=== PATIENT | female | born 2000 | race Caucasian/White ===

== ENCOUNTER 2018-05-21 16:16 | Outpatient (REF) | payer MEDICAID, SELFPAY | END 2018-05-21 16:36 | LOC: NCHCN 16:16 | PROVIDERS: PCP Family Medicine; Visit Provider Nurse Practitioner Family | DX: M54.9 Dorsalgia, unspecified (principal) | CPT/HCPCS: 87077; 87086 ==

== ENCOUNTER 2020-04-11 16:49 | Outpatient (REF) | payer MEDICAID, SELFPAY ==
[2020-04-11 21:12] LABS: HCT 45.7 % (36.0-46.0); HGB 15.9 g/dL (11.2-15.7); MCH 31.3 pg (27.0-33.0); MCHC 34.8 % (32.0-36.0); MPV 13.6 fL (8.0-11.0); Platelet Count 200 10^3/uL (130-400); RBC 5.08 10^6/uL (3.93-5.22); RDW 11.6 % (11.7-14.6); WBC 8.97 10^3/uL (4.4-10.8)
[2020-04-11 22:21] LABS: TSH (W/Ref FT4) 1.13 uIU/mL (0.36-3.74); Vitamin B12 442 pg/mL (193-986)
[2020-04-13 04:53] LABS: Vitamin D 25 Total 19.9 ng/ml (30-100)
== END 2020-04-11 17:09 ==
LOC: NCHCN 16:49
PROVIDERS: PCP Family Medicine; Visit Provider Nurse Practitioner Family
DX: F41.8 Other specified anxiety disorders (principal); R53.83 Other fatigue
CPT/HCPCS: 82306; 85027; 82607; 84443

== ENCOUNTER 2020-08-04 18:37 | Outpatient (REF) | payer MEDICAID, SELFPAY ==
[2020-08-07 05:55] LABS: Vitamin D 25 Total 32.7 ng/ml (30-100)
== END 2020-08-04 18:57 ==
LOC: NCHCN 18:37
PROVIDERS: PCP Family Medicine; Visit Provider Family Medicine
DX: E55.9 Vitamin D deficiency, unspecified (principal)
CPT/HCPCS: 82306

== ENCOUNTER 2020-08-25 11:28 | Outpatient (REF) | payer MEDICAID, SELFPAY ==
--- NOTE | 2020-08-25 08:30 | PAPFT_PTH ---
PATIENT: Rosy Spencer LOC: [facility] U#:[id number] AGE/SX: 19/F ROOM: RE08/25/[address]: Buzz Whelan : 2000 BED: DIS: 08/25/2020 SPEC #: [id number] RECD: 08/25/20 13:02 STATUS: SHANICE REAGAN #: [id number] XIOMARA: 08/25/20 08:[address]: Buzz Whelan [facility] Cytology RECD BY: Chiquita Eubanks Tissues: 1 - CX/ENDOCX FOR PAP SMEARS Procedures: PAP THIN PREP/UVM Screening Comments: [id number]
== END 2020-08-25 11:48 ==
LOC: NCHCN 11:28
PROVIDERS: PCP Family Medicine; Visit Provider Family Medicine
DX: Z12.4 Encounter for screening for malignant neoplasm of cervix (principal)
CPT/HCPCS: 88142

== ENCOUNTER 2020-10-23 16:29 | Outpatient (REF) | payer MEDICAID, SELFPAY ==
[2020-10-25 12:56] LABS: COVID-19 RT-PCR UVMMC Result Negative (Negative)
== END 2020-10-23 16:30 | disposition home or self-care (01) ==
LOC: NCHCN 16:29
PROVIDERS: PCP Family Medicine; Visit Provider Internal Medicine
DX: Z20.822 Contact with and (suspected) exposure to COVID-19 (principal); R05 Cough
CPT/HCPCS: U0003

== ENCOUNTER 2021-07-20 15:02 | Outpatient (REF) | payer MEDICAID, SELFPAY ==
[2021-07-23 14:34] LABS: Chlamydia Result Negative (Negative); GC Result Negative (Negative)
== END 2021-07-20 15:03 | disposition home or self-care (01) ==
LOC: NCHCN 15:02
PROVIDERS: PCP Family Medicine; Visit Provider Family Medicine
DX: Z11.3 Encounter for screening for infections with a predominantly sexual mode of transmission (principal)
CPT/HCPCS: 87491; 87591

== ENCOUNTER 2024-06-15 21:51 | Outpatient (REF) | payer BC, SELFPAY ==
[2024-06-15 21:44] LABS: COVID-19 PCR Negative (Negative); Influenza A PCR Negative (Negative); Influenza B PCR Negative (Negative); RSV PCR Negative (Negative)
[2024-06-15 21:47] LABS: Source Nasopharynx
--- OUTSIDE RECORDS SUMMARY | 2024-06-15 21:53 | XMS_ITS | Encounter Summary ---
Author Organization [facility] Address [address] [place] [address] Care Team Providers Care Insurance Sales Representative Name Role Phone Unavailable Primary Care Provider Unavailabl e Encounter Details Date Type Department Care Team (Late st Contact Info) Description 08/17/2008 17:02 EST Hospital Encounter [facility] - Other [address] [place] [address] Gabe Warner MD [address] [place] [id number] Discharge Disposition: Home or Self Care Social History Tobacco Use Types Packs/Day Years Used Date Smoking Tobacco: Never Assessed Sex and Gender Information Value Date Recorded Sex Assigned at Not on file Gender Identity Female 12/18/2021 18:07 EDT Sexual Orientation Not on file documented as of this encounter Discharge Disposition Disposition Code Departure Means Destination Home or Self Care documented in this encounter Plan of Treatment Not on file documented as of this encounter Procedures Procedure Name Priority Date/Time Associated Diagnosis Comments SURGICAL PATHOLOGY Routine 08/17/2008 0:00 EST documented in this encounter Results * SURGICAL PATHOLOGY (08/17/2008 0:00 EST) Pathology Report: SURGICAL PATHOLOGY REPORT ? Reports generated via electronic interface contain original data; ? however they are lacking the format of the original report. ? Caution should be taken when reading/interpreti ng unformatted reports. ? Name: ? ARLYN, ROSY R ? Accession #: ? [id number] ? : ? 2000 (Age: 7) ??F ? Collect Date: ? 08/17/2008 ? Location: ? [facility] ? Receive Date: ? 08/17/2008 ? Provider: GABE WARNER MD ? Copy to: PETER THURMAN MD ? Final Pathologic Diagnosis: ? Skin of back, right, punch biopsy [id number] ? 1. ?Melanocytic nevus, compound type, with unusual architectural ? features and moderate-severe cytologic atypia. ??See comment. ? - Nevus extends to peripheral edge of punch biopsy specimen. ? Comment: ? The biopsy consists of a compound melanocytic proliferation that shows ? significant architectural and cytologic atypia of the junctional component. ? Although a Spitz nevus is a consideration given the patient's age, the ? morphologic features are not characteristic of a Spitz nevus. ??The growth ? pattern of the dermal component also raises the possibility of a congenital ? nevus. ??However, the features noted in the junctional component are unusual for a congenital nevus. 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 ??Given the degree of atypia and focal extension ?? of the lesion to the edges of the biopsy, conservative re-excision is ? recommended. ??(Dr. Wyman)/[facility] ? Microscopic Description: ? Sections consist of a punch biopsy of skin to the deep reticular dermis. ?? The epidermis shows a variable degree of fibroplasia with elongate and somewhat anastomosing rete ridges. ??There is a proliferation of melanocytes that spans ?? much of the biopsy specimen. ??The intraepidermal component predominates and ? extends beyond the dermal component. ??The intraepidermal melanocytes are ? arranged in nests and as individual cells. ??The nests vary in size and shape and many are ill-defined. ??In areas, individual melanocytes predominate and are ? focally crowded along the dermal-epidermal junction. ??Individual melanocytes are identified in the lower portions of the epidermis but well-developed upward ? migration (into the upper levels of the epidermis) is not identified. ??The ? intraepidermal melanocytes are enlarged and most have an abundance of ? ill-defined cytoplasm containing coarse melanin pigment. ??The nuclei show a ? moderate degree of pleomorphism and many have vesicular chromatin and small ? discernible nucleoli. ??Occasional large, hyperchromatic forms are evident. ??The dermal component consists of smaller melanocytes forming nests and cords. ??In ?? general, the dermal melanocytes show features of maturation with descent. ? Mitotic figures are not identified within the dermal melanocytes. ??The ? melanocytes, in some areas, extend preferentially around the neurovascular ? plexus and adnexal structures. ??There is a mild degree of papillary dermal ? fibroplasia with a sparse lymphocytic infiltrate and clusters of melanophages. ?? Numerous deeper sections show similar features. ??(Dr. Wyman)/[facility] ? Document reviewed and electronically signed by: ? Yesenia Wyman MD ? Report ??Date: 08/17/2008 16:30 ? By the signature above, the attending physician certifies that he/she has ? personally conducted a gross and/or microscopic examination of the described ? specimens and rendered or confirmed the above diagnosis. ? Specimen(s) Received: ? [facility] [id number] (9) ? Clinical History: ? Skin lesion ? Gross Description: ? Nine slides are received for review from [facility], one each labelled [id number], ? [id number] dpr 1-3, [id number] dpr 4-6, [id number] dpr 7-9, [id number] dpr ?? 10-12, [id number] dpr 13-15, [id number] dpr 16-18, two labelled [id number] ?? early ribbon. ? End of Report ? [facility] 08/17/2008 08/17/2008 12: 02 EST Gabe Warner MD PATHOLOGY ORDERABLES [facility] [address] [place] [address] documented in this encounter Visit Diagnoses Not on filedocumented in this encounter
--- OUTSIDE RECORDS SUMMARY | 2024-06-15 21:53 | XMS_ITS | Encounter Summary ---
Author Organization [facility] Address [address] [place] [address] Care Team Providers Care Belt Back Operator Name Role Phone Cony Perez MD Primary Care Provider [phone] Jodi Whelan MD Primary Care Provide r Reason for Referral * Radiology Services (Routine/Next Available) - Authorization Not Required Specialty Diagnoses / Procedures [facility] Referred To Contact Radiology Diagnoses Monocular vision loss Procedures MR HEAD W WO CONTRAST Lala Rutherford MD [address] [place] [phone] [facility] Referral ID Status Reason Start Date Expiration Date Visits Requested Visits Authorized [id number] Authorization Not Required 11/26/2021 1 1 Reason for Visit * Reason Comments Eye Flashes And/Or Floaters Encounter Details Date Type Department Care Team (Late st Contact Info) Description 11/26/2021 13:45 EDT Office Visit [facility] Ophthalmology - [address] [address] Lala Rutherford MD [address] [place] [phone] Social History Tobacco Use Types Packs/Day Years Used Date Smoking Tobacco: Former Cigarettes 1 09/13/2018 - 09/19/2020 Smokeless Tobacco: Never Comments:Pt vapes jessica xiao Alcohol Use Standard Drinks/Week Comments Not Currently 0 (1 standard drink = 0.6 oz pur e alcohol) Sex and Gender Information Value Date Recorded Sex Assigned at Not on file Gender Identity Female 12/18/2021 18:07 EDT Sexual Orientation Not on file documented as of this encounter Progress Notes * Lala Rutherford MD - 11/26/2021 4075 EDT Chief Complaint Patient presents with ??? Eye Flashes And/Or Floaters Comments On Friday a dark blob appeared in vision of left eye, looked away, then started seeing wavy blurriness in far periphery of left visual, which grew until VA of left eye was lost for ~2 minutes, and then returned. During entire episode, which lasted ~2.5 hours, pt had sharp pains in right side of head. Once the sharp pains resolved, pt states she had a migraine. Pt had a bad migraine 2 weeks ago, without any visual symptoms. Pt states that when driving her eyes get very irritated, and she needs to push on them to relieve the irritation. Pt states it may be photophobia, but is unable to describeit further. Pt denies eye pain. Pt felt disoriented at end of episode. Pt had a similar episode about 3 mos ago, although she was in a brighter room, and the visual aberration was super bright. That entire episode lasted only about 10 minutes. More recently eyes have been irritated like what happens when she is driving, even when she is not driving. Pt has HEWITT approximately HEWITT about 3x weekly, are relieved by taking Tylenol. Pt c/o new floaters over past two weeks or so. Rare floater. Pt wears glasses, current Rx 1 year old. Maternal grandfather, and Maternal great grandmother both had retinitis pigmentosa. HPI The patient is a 21 y.o. female who is here for visual symptoms in the setting of headaches. POH: Patient had headaches and was given glasses for reading at age 5 to address this. As patient has gotten older, she developed migraines that include being in a lot of pain, goes to lie down in a dark room and cannot move, and puts her hand on her left brow. Patient has been on oral contraceptive for many years. The brand was changed about two months ago. She was started on prazosin and buspirone one month ago. Three months ago she was looking a computer at work and it seemed super-light for about ten minutesand had an associated headache. November 23, she was watching the news in a dark room and the TV looked very bright and then she had a darkened afterimage and she closed her eyes.She next opened her eyes and saw a half brown to her superior left VF with some waving and noted missing seeing about half of her boyfriends face. This progressed to a complete blacking out of vision of the left eye for 2-5 minutes (she states that she covered her left eye and the vision was normal in the right eye). This was followed by a sharp pain inher head and migraine headache. Right Eye: Floaters, Glare or Light Sensitivity (irritation) Left Eye: Floaters, Glare or Light Sensitivity (irritation) Visual Aid: Glasses Current Rx Age 1 year Location: Both eyes Pain: 0 - No pain Quality: Severity: Duration: Months Timing: Constant Lasts: Months Context: Modifying factors: Associated Signs & Symptoms: Attestation: ROS Constitutional: ENT/Mouth NL Cardiovascular: NL Respiratory: NL Gastrointestinal: Genitourinary: Musculoskeletal: Integumentary: Neurologic: Headache Psychiatric: Uncontrolled Anxiety, Depression (Under treatment) Endocrine: NL Hematologic: Immunologic: Chemical Supervisor: Exposures: Other: Attestation: Allergies include: Patient has no known allergies. There is no problem list on file for this patient. Outpatient Medications Marked as Taking for the 11/26/21 encounter (Office Visit) with Lala Rutherford MD Medication Sig ??? acetaminophen (TYLENOL) 500 mg tablet Take 500 mg by mouth every 6 hours as needed for Pain. ??? buspirone HCl (BUSPIRONE ORAL) Take by mouth. ??? ergocalciferol, vitamin D2, (VITAMIN D ORAL) Take by mouth. ??? prazosin HCl (PRAZOSIN ORAL) Take by mouth daily. ??? UNKNOWN TO PATIENT Some form of control History reviewed. No pertinent past medical history. History reviewed. No pertinent surgical history. Family History Problem Relation Age of Onset ??? Retinitis Pigmentosa Maternal Grandmother ??? Macular Degeneration Maternal Grandfather ??? Retinitis Pigmentosa Maternal Great-Grandmother ??? Glaucoma Neg Hx Patient reports that she quit smoking about 15 months ago. She started smoking about 2 years ago. She has never used smokeless tobacco. She reports previous alcohol use. She reports previous drug use. Recent HbA1c: No results found for: HGBA1C Base Eye Exam Visual Acuity (Snellen - Linear) Right Left Dist cc 20/20 -1 20/20 Near cc J1+ J1+ Correction: Glasses Tonometry (iCare, 14:17) Right Left Pressure 18 18 Pupils Dark Light Shape React APD Right 6.5 4 Round Brisk None Left 6.5 4 Round Brisk None Visual Hernández (Counting fingers) Right Left Full Full Extraocular Movement Right Left Full, Ortho Full, Ortho Neuro/Psych Oriented x3: Yes Mood/Affect: Normal Dilation Both eyes: Paremyd @ 14:38 Additional Tests Color Right Left Ishihara Slit Lamp and Fundus Exam External Exam Right Left External Normal Normal Slit Lamp Exam Right Left Lids/Lashes Normal Normal Conjunctiva/Sclera White and quiet White and quiet Cornea Clear Clear Anterior Chamber Deep and quiet Deep and quiet Iris Dilated, blue Dilated, blue Lens Clear Clear Vitreous Normal Normal Fundus Exam Right Left Disc Superior peripapillary pigment Healthy Rim C/D Ratio 0.6 0.7 Macula Normal Normal Vessels Normal Normal Periphery Normal Normal Refraction Wearing Rx Sphere Cylinder [place] Right -0.75 +0.75 086 Left -0.50 +0.75 094 Age: 1yr Type: SVL DIAGNOSTIC TESTS: OCT, Optic Nerve - OU - Both Eyes OCT REPORT Indications: Monocular Vision Loss Findings: Right Eye: Left Eye: RNFL: 106 105 Optic Nerve Head: 0.67 0.63 Signal Strength 10/10 10/10 Original test to be found in patients shadow chart Toth VF 24-2 Fast - OU - Both Eyes Right Eye 24-2. Left Eye 24-2. Notes VISUAL FIELD TEST Report Test: 24-2 KELVIN Standard Indications: Monocular Vision Loss Findings: Right Eye: Left Eye: False positives 5%, false negatives 7%. Nonspecific defects Reliable and nonspecific defects Original tests to be found in patients shadow chart Impact on Plan: Will follow MR HEAD W WO CONTRAST EXAM: MRI HEAD WO/W CONTRAST HISTORY: Vision loss, monocular; Headache, classic migraine. TECHNIQUE: MRI head without and with intravenous gadolinium contrast. Structured report code: NR.04 COMPARISON: None. FINDINGS: PARENCHYMA: No evidence of infarction. No parenchymal hemorrhage. No mass or midline shift. No abnormal enhancement. EXTRA-AXIAL SPACES: No extra-axial collection. No extra-axial mass. VENTRICLES: No hydrocephalus. VESSELS: The flow voids and intravascular enhancement are normal. No dural venous sinus thrombosis or stenosis. BONES: Unremarkable. ORBITS: No significant abnormality. No scleral flattening or increased CSF in the optic nerve sheaths. PARANASAL SINUSES/MASTOID AIR CELLS: Predominantly clear. EXTRACRANIAL SOFT TISSUES: Unremarkable. IMPRESSION Normal MRI of the head without and with contrast. IMPRESSION & PLAN: Rosy is here for visual symptoms in the setting of headaches. She is accompanied by her mother. POH: Patient had headaches and was given glasses for reading at age 5 to address this. As patient has gotten older, she developed migraines that include being in a lot of pain, goes to lie down in a dark room and cannot move, and puts her hand on her left brow. Patient has been on oral contraceptive for many years. The brand was changed about two months ago. She was started on prazosin and buspirone one month ago. Three months ago she was looking a computer at work and it seemed super-light for about ten minutesand had an associated headache. November 23, she was watching the news in a dark room and the TV looked very bright and then she had a darkened afterimage and she closed her eyes.She next opened her eyes and saw a half brown to her superior left VF with some waving and noted missing seeing about half of her boyfriends face. This progressed to a complete blacking out of vision of the left eye for 2-5 minutes (she states that she covered her left eye and the vision was normal in the right eye). This was followed by a sharp pain inher head and migraine headache. Today's exam of the visual system appears normal. She has mild physiologic cupping and a little astigmatism. Given the MONOCULAR Visual loss, this is likely a RETINAL MIGRAINE. I discussed this with Dr. Holm. PLAN: Discussed with patient that the oral contraceptive is contraindicated in those with migraine with aura, and she should take this up with her prescribing doctor. Ordered MRI with contrast of her brain, for baseline reassurance most likely. rv after the MRI. [facility] MRI report reviewed and nothing ominous revealed. Thus, retinal migraine. Arrange fu- copy to Renee Gallegos was seen today for eye flashes and/or floaters. Diagnoses and all orders for this visit: Monocular vision loss - OCT, OPTIC NERVE - OU - BOTH EYES - TOTH VF 24-2 FAST - OU - BOTH EYES - MR HEAD W WO CONTRAST Migraine with aura and without status migrainosus, not intractable - OCT, OPTIC NERVE - OU - BOTH EYES - TOHT VF 24-2 FAST - OU - BOTH EYES Retinal migraine - OCT, OPTIC NERVE - OU - BOTH EYES Other orders - acetaminophen (TYLENOL) 500 mg tablet; Take 500 mg by mouth every 6 hours as needed for Pain. - prazosin HCl (PRAZOSIN ORAL); Take by mouth daily. - buspirone HCl (BUSPIRONE ORAL); Take by mouth. - ergocalciferol, vitamin D2, (VITAMIN D ORAL); Take by mouth. - UNKNOWN TO PATIENT; Some form of control I have reviewed the patient's past medical, family, social and surgical history. I have also reviewed the patient's medications, allergies, and problem list. I performed my own HPI and have reviewed the tech's ROS as well. I personally completed this exam myself. Lala Rutherford MD I am scribing for Dr. Lala Rutherford while she is personally performing the service. Signature: SAMANTA Verma The patient was instructed to call our office or go to emergency room if worse vision, worse symptoms, or new/other concerns arise. documented in this encounter Plan of Treatment Not on file documented as of this encounter Procedures Procedure Name Priority Date/Time Associated Diagnosis Comments MR HEAD W WO CONTRAST Routine 12/18/2021 19:45 EDT Monocular vision loss OCT, OPTIC NERVE - OU - BOTH EYES Routine 11/26/2021 16:09 EDT Monocular vision loss Migraine with aura and without status migrainosus, not intractable Retinal migraine TOTH VF 24-2 FAST - OU - BOTH EYES Routine 11/26/2021 16:09 EDT Monocular vision loss Migraine with aura and without status migrainosus, not intractable documented in this encounter Results * MR HEAD W WO CONTRAST (12/18/2021 19:45 EDT) Anatomical Region Laterality Modality Head Magnetic Resonan ce 12/19/2021 10:0 3 EDT Impressions 12/19/2021 10:03 EDT Normal MRI of the head without and with contrast. Narrative 12/19/2021 10:03 EDT EXAM: MRI HEAD WO/W CONTRAST HISTORY: Vision loss, monocular; Headache, classic migraine. TECHNIQUE: MRI head without and with intravenous gadolinium contrast. Structured report code: NR.MR04 COMPARISON: None. FINDINGS: PARENCHYMA: No evidence of infarction. No parenchymal hemorrhage. No mass or midline shift. No abnormal enhancement. EXTRA-AXIAL SPACES: No extra-axial collection. No extra-axial mass. VENTRICLES: No hydrocephalus. VESSELS: The flow voids and intravascular enhancement are normal. No dural venous sinus thrombosis or stenosis. BONES: Unremarkable. ORBITS: No significant abnormality. No scleral flattening or increased CSF in the optic nerve sheaths. PARANASAL SINUSES/MASTOID AIR CELLS: Predominantly clear. EXTRACRANIAL SOFT TISSUES: Unremarkable. Procedure Note Corby Palmer MD - 12/19/2021 EXAM: MRI HEAD WO/W CONTRAST HISTORY: Vision loss, monocular; Headache, classic migraine. TECHNIQUE: MRI head without and with intravenous gadolinium contrast.Structured report code: NR.MR04 COMPARISON: None. FINDINGS: PARENCHYMA: No evidence of infarction. No parenchymal hemorrhage. No mass or midlineshift. No abnormal enhancement. EXTRA-AXIAL SPACES: No extra-axial collection. No extra-axial mass. VENTRICLES: No hydrocephalus. VESSELS: The flow voids and intravascular enhancement are normal. No dural venoussinus thrombosis or stenosis. BONES: Unremarkable. ORBITS: No significant abnormality. No scleral flattening or increased CSF in theoptic nerve sheaths. PARANASAL SINUSES/MASTOID AIR CELLS: Predominantly clear. EXTRACRANIAL SOFT TISSUES: Unremarkable. IMPRESSION Normal MRI of the head without and with contrast. Lala Rutherford MD IMG MRI ORDERABL ES * OCT, OPTIC NERVE - OU - BOTH EYES (11/26/2021 16:09 EDT) Narrative [facility] POINT OF CARE - 11/26/2021 16:09 EDT OCT REPORT Indications: ??Monocular Vision Loss Findings: Right Eye: Left Eye: RNFL: ??106 ??105 Optic Nerve Head: 0.67 0.63 Signal ??Strength 05/27 05/27 Original test to be found in patients shadow chart Lala Rutherford MD OPH TOMOGRAPHY Performing Organization Address [facility] Co de Phone Number [facility] POINT OF CARE * TOTH VF 24-2 FAST - OU - BOTH EYES (11/26/2021 16:09 EDT) Narrative [facility] OF CARE - 11/26/2021 16:09 EDT Right Eye 24-2. Left Eye 24-2. Notes VISUAL FIELD TEST Report Test: 24-2 KELVIN Standard Indications: Monocular Vision Loss Findings: Right Eye: Left Eye: False positives 5%, false negatives 7%. Nonspecific defects Reliable and nonspecific defects ?? Original tests to be found in patients shadow chart Impact on Plan: Will follow Lala Rutherford MD OPH VISUAL FIE LD Performing Organization Address [facility] Co de Phone Number [facility] documented in this encounter Visit Diagnoses Diagnosis Monocular vision loss- Primary Migraine with aura and without status migrainosus, not intractable Migraine with aura, without mention of intractable migraine without mention of status migrainosus Retinal migraine Migraine with aura, without mention of intractable migraine without mention of status migrainosus documented in this encounter Historical Medications * This list may reflect changes made after this encounter. Medication Sig Dispensed Refills Start Date End Date UNKNOWN TO PATIENT Some form of control ergocalciferol, vitamin D2, (VITAMIN D ORAL) Take by mouth. buspirone HCl (BUSPIRONE ORAL) Take by mouth. prazosin HCl (PRAZOSIN ORAL) Take by mouth daily. acetaminophen (TYLENOL) 500 mg tablet Take 500 mg by mouth every 6 hours as needed for Pain. added in this encounter Eye Exam Visual Acuity (Snellen - Linear) Right eye Left eye Dist cc 20/20 -1 20/20 Near cc J1+ J1+ Correction: Glasses Tonometry (iCare, 14:17) Right eye Left eye Pressure 18 18 Pupils Dark Light Shape React APD Right eye 6.5 4 Round Brisk None Left eye 6.5 4 Round Brisk None Visual Hernández (Counting fingers) Right eye Left eye Full Full Extraocular Movement Right eye Left eye Full, Ortho Full, Ortho Neuro/Psych Oriented x3: Yes Mood/Affect: Normal Dilation Both eyes: Paremyd @ 14:38 Color Right eye Left eye Ishihara External Exam Right eye Left eye External Normal Normal Slit Lamp Exam Right eye Left eye Lids/Lashes Normal Normal Conjunctiva/Sclera White and quiet White and trevor et Cornea Clear Clear Anterior Chamber Deep and quiet Deep and quiet Iris Dilated, blue Dilated, blue Lens Clear Clear Vitreous Normal Normal Fundus Exam Right eye Left eye Disc Superior peripapillary pigment H ealthy Rim C/D Ratio 0.6 0.7 Macula Normal Normal Vessels Normal Normal Periphery Normal Normal Wearing Rx Sphere Cylinder [place] Right eye -0.75 +0.75 086 Left eye -0.50 +0.75 094 Age: 1yr Type: SVL Care Teams Belt Back Operator Relationship Specialty Start Date End Date Cony Perez MD PCP - General 06/29/15 12/17/21 Jodi Whelan MD [address] [place] [phone] PCP - General 12/18/21 documented as of this encounter
--- OUTSIDE RECORDS SUMMARY | 2024-06-15 21:53 | XMS_ITS | Encounter Summary ---
Author Organization [facility] Address [address] [place] [address] Care Team Providers Care Broaching Machine Repairer Name Role Phone Cony Perez MD Primary Care Provider [phone] Encounter Details Date Type Department Care Team (Late st Contact Info) Description 11/27/[address] [facility] Radiology - [address] [address] Carlos Vieyra MD [address] [facility], Level 1 [place] [phone] Social History Tobacco Use Types Packs/Day Years Used Date Smoking Tobacco: Former Cigarettes 1 09/13/2018 - 09/19/2020 Smokeless Tobacco: Never Comments:Pt vapes nicotone d aily Alcohol Use Standard Drinks/Week Comments Not Currently 0 (1 standard drink = 0.6 oz pur e alcohol) Sex and Gender Information Value Date Recorded Sex Assigned at Not on file Gender Identity Female 12/18/2021 18:07 EDT Sexual Orientation Not on file documented as of this encounter Plan of Treatment Not on file documented as of this encounter Visit Diagnoses Not on filedocumented in this encounter Care Teams Broaching Machine Repairer Relationship Specialty Start Date End Date Cony Perez MD PCP - General 06/29/15 12/17/21 documented as of this encounter
--- OUTSIDE RECORDS SUMMARY | 2024-06-15 21:53 | XMS_ITS | Clinical Summary ---
Author Organization [facility] Address [address] [place] [address] Care Team Providers Care Sustainability Officer Name Role Phone Jodi Whelan MD Primary Care Provide r Allergies No known active allergies Medications Medication Sig Dispensed Refills Start Date End Date Status acetaminophen (TYLENOL) 500 mg tablet Take 500 mg by mouth every 6 hours as needed for Pain. Active prazosin HCl (PRAZOSIN ORAL) Take by mouth daily. Active buspirone HCl (BUSPIRONE ORAL) Take by mouth. Acti ve ergocalciferol, vitamin D2, (VITAMIN D ORAL) Take by mouth. Active UNKNOWN TO PATIENT Some form of control Active Active Problems No known active problems Family History Medical History Relation Comments Macular Degeneration Maternal Grandfather Retinitis Pigmentosa Maternal Grandmother Retinitis Pigmentosa Maternal Great-Grandmother Glaucoma Neg Hx Relation Status Comments Maternal Grandfather Maternal Grandmother Maternal Great-Grandmother Social History Tobacco Use Types Packs/Day Years Used Date Smoking Tobacco: Every Day Cigarettes Started: 07/14/2019; Last attempted to quit: 09/19/2020 Smokeless Tobacco: Never Comments:Pt vapes nicotone d aily Alcohol Use Standard Drinks/Week Comments Yes 0 (1 standard drink = 0.6 oz pur e alcohol) Sex and Gender Information Value Date Recorded Sex Assigned at Not on file Gender Identity Female 12/18/2021 18:07 EDT Sexual Orientation Not on file Obstetrics History Last Filed Vital Signs Vital Sign Reading Time Taken Comments Blood Pressure 119/76 12/30/2021 1330 EDT Pulse 101 12/30/2021 1255 EDT Temperature 36.8 ??C (98.2 ??F) 12/30/2021 1255 EDT Respiratory Rate 18 12/30/2021 1255 EDT Oxygen Saturation 98% 12/30/2021 1330 EDT Inhaled Oxygen Concentration - - Weight 63.5 kg (140 lb) 12/30/2021 1254 EDT Height 157.5 cm (5' 2) 12/30/2021 1254 EDT Body Mass Index 25.61 12/30/2021 1254 EDT Plan of Treatment Health Maintenance Due Date Last Done Comments Hepatitis C Screen 1998 Hepatitis B Vaccine (1 of 3 - 19+ 3-dose series) 11/12 COVID-19 Vaccine (2022-24 season) 2023 Care Teams Sustainability Officer Relationship Specialty Start Date End Date Jodi Whelan MD [address] [address] PCP - General 12/18/21
--- OUTSIDE RECORDS SUMMARY | 2024-06-15 21:53 | XMS_ITS | Encounter Summary ---
Author Organization [facility] Address [address] [place] [address] Care Team Providers Care Certified Prosthetist Name Role Phone Cony Perez MD Primary Care Provider [phone] Jodi Whelan MD Primary Care Provide r Encounter Details Date Type Department Care Team (Late st Contact Info) Description 07/21/2021 Lab Requisition [facility] Pathology & Laboratory Medicine - [address] [address] Outr Resulting Lab, Provider Social History Tobacco Use Types Packs/Day Years Used Date Smoking Tobacco: Never Assessed Sex and Gender Information Value Date Recorded Sex Assigned at Not on file Gender Identity Female 12/18/2021 18:07 EDT Sexual Orientation Not on file documented as of this encounter Plan of Treatment Not on file documented as of this encounter Procedures Procedure Name Priority Date/Time Associated Diagnosis Comments CHLAMYDIA/N. GONORRHOEAE AMPLIFIED NUCLEIC ACID Routine 07/20/2021 14:00 EST documented in this encounter Results * CHLAMYDIA/N. GONORRHOEAE AMPLIFIED RNA (07/20/2021 14:00 EST) Neisseria gonorrhoeae Result Negative Negative 07/23/2021 14:29 EST [facility] Chlamydia trachomatis Result Negative Negative 07/23/2021 14:29 EST [facility] Swab ENTIRE VAGINA / Unknown 07/20/2021 14:00 EST 07/22/2021 8:26 EST Provider Outr Resulting Lab MICROBIOLOGY - GENERAL ORDERABLES [facility] [address] [place] [address] documented in this encounter Visit Diagnoses Not on filedocumented in this encounter Care Teams Certified Prosthetist Relationship Specialty Start Date End Date Cony Perez MD PCP - General 06/29/15 12/17/21 Jodi Whelan MD [address] [place] [address] PCP - General 12/18/21 documented as of this encounter
--- OUTSIDE RECORDS SUMMARY | 2024-06-15 21:53 | XMS_ITS | Encounter Summary ---
Author Organization [facility] Address [address] [place] [address] Care Team Providers Care Hydro Pneumatic Tester Name Role Phone Unavailable Primary Care Provider Unavailabl e Encounter Details Date Type Department Care Team (Late st Contact Info) Description 10/22/2004 Results Only [facility] [address] [place] [address] Unknown, Provider, Social History Tobacco Use Types Packs/Day Years Used Date Smoking Tobacco: Never Assessed Sex and Gender Information Value Date Recorded Sex Assigned at Not on file Gender Identity Female 12/18/2021 18:07 EDT Sexual Orientation Not on file documented as of this encounter Plan of Treatment Not on file documented as of this encounter Procedures Procedure Name Priority Date/Time Associated Diagnosis Comments N. GONORRHOEAE AMPLIFIED PROBE Routine 10/22/2004 13:41 EST ZZCHLAMYDIA TRACHOMATIS AMPLIFIED PROBE Routine 10/22/2004 13:41 EST documented in this encounter Results * N. GONORRHOEAE AMPLIFIED PROBE (10/22/2004 13:41 EST) Result No Neisseria gonorrhoeae DNA detected by tax clerk mediated amplification. If sexual abuse is suspected, culture is recommended. [facility] Report Status Final [id number] [facility] Specimen Description Urine [facility] 10/22/2004 13:4 1 EST 10/22/2004 22:30 EST Provider Unknown MICROBIOLOGY - GENER AL ORDERABLES Performing Organization Address [facility] Co de Phone Number [facility] [address] [place] [address] * CHLAMYDIA TRACHOMATIS AMPLIFIED PROBE (10/22/2004 13:41 EST) Specimen Description Urine [facility] Result No Chlamydia trachomatis DNA detected by tax clerk mediated amplification. If sexual abuse is suspected, culture is recommended. [facility] Report Status Final [id number] [facility] 10/22/2004 13:4 1 EST 10/22/2004 22:30 EST Provider Unknown MICROBIOLOGY - GENER AL ORDERABLES Performing Organization Address [facility] de Phone Number [facility] [address] [place] [address] documented in this encounter Visit Diagnoses Not on filedocumented in this encounter
--- OUTSIDE RECORDS SUMMARY | 2024-06-15 21:53 | XMS_ITS | Encounter Summary ---
Author Organization [facility] Address [address] [place] [address] Care Team Providers Care Willow Machine Tender Name Role Phone Jodi Whelan MD Primary Care Provide r Reason for Visit * Radiology Services (Routine/Next Available) - Authorization Not Required Specialty Diagnoses / Procedures Referred By Contac t Referred To Contact Radiology Diagnoses Monocular vision loss Procedures MR HEAD W WO CONTRAST Lala Rutherford MD [address] [facility] [address] [place] [address] [facility] Referral ID Status Reason Start Date Expiration Date Visits Requested Visits Authorized [id number] Authorization Not Required 11/26/2021 1 1 Encounter Details Date Type Department Care Team (Latest Contact Info) Description 12/18/2021 18:08 EDT - 12/18/2021 23:59 EDT Hospital Encounter [facility] Radiology [facility] [place] [id number] Discharge Disposition: Home or Self Care Social [...] on file documented as of this encounter Medications at Time of Discharge Medication Sig Dispensed Refills Start Date End Date acetaminophen (TYLENOL) 500 mg tablet Take 500 mg by mouth every 6 hours as needed for Pain. buspirone HCl (BUSPIRONE ORAL) Take by mouth. ergocalciferol, vitamin D2, (VITAMIN D ORAL) Take by mouth. prazosin HCl (PRAZOSIN ORAL) Take by mouth daily. UNKNOWN TO PATIENT Some form of control documented as of this encounter Discharge Disposition Disposition Code Departure Means Destination Home or Self Residential documented in this encounter Plan of Treatment Not on file documented as of this encounter Procedures Procedure Name Priority Date/Time Associated Diagnosis Comments MR HEAD W WO CONTRAST Routine 12/18/2021 19:45 EDT Monocular vision loss documented in this encounter Visit Diagnoses Not on filedocumented in this encounter Administered Medications Inactive Administered Medications - up to 3 most recent administrations Medication Order MAR Action Action Date Dose Rate Site gadoterate meglumine solution 1-30 mL 1-30 mL, intravenous, Once in imaging, 1 dose, Starting on Fri12/18/21 at 1935, Until Fri12/18/21 at 1935, Routine, Imaging Protocol Orders Given 12/18/2021 19:35 EDT 12 mL documented in this encounter Orders Medications Ordered That Vinny ht Not Have Been Administered Count Last Ordered Date First Ordered Date gadoterate meglumine solution 1-30 mL 1 10/2021 documented in this encounter Care Teams Willow Machine Tender Relationship Specialty Start Date End Date Jodi Whelan MD [address] [place] [address] [address] [place] [address] PCP - General 12/18/21 documented as of this encounter
--- OUTSIDE RECORDS SUMMARY | 2024-06-15 21:53 | XMS_ITS ---
Author Organization Unknown Address [address] [place] [phone] Phone Care Team Providers Care Environmental Change Analyst Name Role Phone LOUIE Judd Attending Unavailable NICOLE Puente Primary Unavailable Results [facility] - Corin ect Date/Time: 08/08/2021 09:47 [facility] ID: [id number] [address] [place], [place], [id number] LOINC: 64916-1 Test Value Unit Reference Range Code Code System Flag SOURCE= Anterior nasal Tier- EXPOSURE SARS COV2 RNA: NEGATIVE REFERENCE RAN GE: NEGAT 35484-4 LOINC Social History Type Status Start Date End Date Code Code Syst em Smoking History Never smoker (Never Smoked) 572375002 SNOMED CT Sex Female Medications Medication Start Date End Date Route Frequency Dose Code Code System Medication Instructions Home Meds Bactrim DS 800MG-160MG Oral Tablet 07/05/2023 10/16/2023 ORAL TWICE A DAY 1 TABLET 041575 RxNorm TAKE 1 TABLET ORAL TWICE A DAY diazePAM 2MG Oral Tablet 10/16/2023 Unknown ORAL EVERY 6 HOURS 1 TABLET 582879 RxNorm TAKE 1 TABLET ORAL EVERY 6 HOURS as needed spasm Hospital Discharge Instructions Should you have any questions prior to discharge, please contact a member of your healthcare team. If you have left the hospital and have any questions, please contact your primary care physician. Reason For Referral No Data Found Problems Problem Start Date Resolved Date Status Code Code System ANXIETY 01/20/2022 resolved [id number] SNOMED-CT DEPRESSION 01/20/2022 resolved 89840606 SNOMED-C T Allergies and Adverse Reactions Allergy Substance Reaction Severity Start Date Concern Status Co de Code System No Known Allergies Moderate Active 402587760 SN OMED-CT Plan of Treatment Symptoms 05/17/2020 US ABDOMEN LIMITED 1 ORGAN 09/03/2023 EXPOSURE 08/08/2021 SYMPTOMS 06/15/2021 Encounters Encounter Diagnosis Start Date Code Code Sys tem Exposure to SARS-CoV-2 08/08/2021 [id number] WICHO D-CT Personal Care Team Section Performer Name Performer Role Active Date Inactive Da te
--- OUTSIDE RECORDS SUMMARY | 2024-06-15 21:53 | XMS_ITS | Encounter Summary ---
Author Organization [facility] Address [address] [place] [address] Care Team Providers Care Diving Coach Name Role Phone Unavailable Primary Care Provider Unavailabl e Encounter Details Date Type Department Care Team (Latest Contact Info) Description 08/27/2002 8:20 EST - 08/27/2002 11:59 EST Hospital Encounter [address] [address] Elan Dominguez, DDS [address] [place] [address] Discharge Disposition: Auto Discharge Social History Tobacco Use Types Packs/Day Years Used Date Smoking Tobacco: Never Assessed Sex and Gender Information Value Date Recorded Sex Assigned at Not on file Gender Identity Female 12/18/2021 18:07 EDT Sexual Orientation Not on file documented as of this encounter Discharge Disposition Disposition Code Departure Means Destination Auto Discharge documented in this encounter Plan of Treatment Not on file documented as of this encounter Visit Diagnoses Not on filedocumented in this encounter
--- OUTSIDE RECORDS SUMMARY | 2024-06-15 21:53 | XMS_ITS | Encounter Summary ---
Author Organization [facility] Address [address] [place] [address] Care Team Providers Care Welder Machine Operator Name Role Phone Cony Perez MD Primary Care Provider [phone] Jodi Whelan MD Primary Care Provide r Encounter Details Date Type Department Care Team (Late st Contact Info) Description 10/24/2020 Lab Requisition [facility] Pathology & Laboratory Medicine - [facility] [address] [place] [address] Outr Resulting Lab, Provider Social History Tobacco [...] Procedure Name Priority Date/Time Associated Diagnosis Comments ZZCOVID-19 TEST [facility] LAB PCR Today 10/23/2020 16:00 EST COVID-19 TESTING Routine 10/23/2020 16:0 0 EST documented in this encounter Results * COVID-19 TEST [facility] PCR (10/23/2020 16:00 EST) Swab ENTIRE NASOPHARYNX / Unknown 10/23/2020 16:00 EST 10/24/2020 16:07 EST Provider Outr Resulting Lab MICROBIOLOGY - GENERAL ORDERABLES [facility] [address] [place] [address] * COVID-19 TESTING (10/23/2020 16:00 EST) COVID-19 rt-PCR Result Negative Negative 10/25/2020 12:51 EST [facility] Comment: This test has not been FDA cleared or approved. This test has been authorized by FDA under an EUA for use by authorized laboratories. This test has been authorized only for detection of nucleic acid from 2019-nCoV, not for any other viruses or pathogens. This test is only authorized for the duration of the declaration that circumstances exist justifying the authorization of emergency use of in vitro diagnostic tests for detection and/or diagnosis of 2019-nCoV under section 564(b)(1) of Act, 21 U.S.C ?? 360bbb-3(b) (1), unless the authorization is terminated or revoked sooner. Negative results do not preclude 2019-nCoV infection and should not be used as the sole basis for treatment or other patient management decisions. Negative results must be combined with clinical observations, patient history, and epidemiological information. This test was developed and its performance characteristics determined by [facility]. It has not been cleared or approved by the US Food and Drug Administration. FDA does not require this test to go through premarket FDA review. This test is used for clinical purposes. It should not be regarded as investigational or for research. This laboratory is certified under the Clinical Laboratory Improvement Amendments (CLIA) as qualified to perform high complexity clinical laboratory testing. This test is based on the [facility] COVID-19 Emergency Use Authorization (EUA) assay, with minor modification as defined by the FDA Performed on the [employer] 7 Pro RT-PCR System. Performing Lab [facility] 10/25/2020 12:51 EST [facility] Swab 10/23/2020 16:0 0 EST 10/24/2020 16:07 EST Provider Outr Resulting Lab MICROBIOLOGY - GENERAL ORDERABLES [facility] [address] [place] [address] documented in this encounter Visit Diagnoses Not on filedocumented in this encounter Care Teams Welder Machine Operator Relationship Specialty Start Date End Date Cony Perez MD PCP - General 06/29/15 12/17/21 Jodi Whelan MD [address] [address] PCP - General 12/18/21 documented as of this encounter
--- OUTSIDE RECORDS SUMMARY | 2024-06-15 21:53 | XMS_ITS | Encounter Summary ---
Author Organization [facility] Address [address] [place] [address] Care Team Providers Care Internal Medicine Nurse Practitioner Name Role Phone Cony Perez MD Primary Care Provider [phone] Jodi Whelan MD Primary Care Provide r Encounter Details Date Type Department Care Team (Late st Contact Info) Description 08/28/2020 Lab Requisition [facility] Pathology & Laboratory Medicine - [facility] [address] [place], [place] [address] Jodi Whelan MD [address] [place] [address] [address] [place], [place] [address] Encounter for screening for malignant neoplasm of cervix; Encounter for general adult medical examination without abnormal findings Social History Tobacco Use Types Packs/Day Years Used Date Smoking Tobacco: Never Assessed Sex and Gender Information Value Date Recorded Sex Assigned at Not on file Gender Identity Female 12/18/2021 18:07 EDT Sexual Orientation Not on file documented as of this encounter Plan of Treatment Not on file documented as of this encounter Procedures Procedure Name Priority Date/Time Associated Diagnosis Comments PAP TEST Today 08/25/2020 8:30 EST Encounter for screening for malignant neoplasm of cervix Encounter for general adult medical examination without abnormal findings documented in this encounter Results * PAP TEST (08/25/2020 8:30 EST) Specimens A. Cervix and/or Endocervix , ThinPrep Imaging System with Manual Evaluation 09/04/2020 8:19 EST [facility] Specimen Adequacy Satisfactory for Evaluation - transformation zone component present 09/04/2020 8:19 EST [facility] General Categorization Negative for intraepithelial lesion or malignancy 09/04/2020 8:19 EST [facility] Attestation . 09/04/2020 8:19 EST [facility] at 0819 Clinical History See below 09/04/19 8:19 EST [facility] Performing Lab [facility] 09/04/2020 8:19 [facility] Scanned Images 09/04/2020 8:19 [facility] Papanicolaou smear specimen (specimen) CERVIX UTERI STRUCTURE / Unknown 08/25/2020 8:30 EST 08/28/2020 10:36 EST Jodi Whelan MD PATHOLOGY ORD ERABLES [facility] [address] [place] [address] documented in this encounter Visit Diagnoses Diagnosis Encounter for screening for malignant neoplasm of cervix Screening for malignant neoplasm of the cervix Encounter for general adult medical examination without abnormal findings Unspecified general medical examination documented in this encounter Care Teams Internal Medicine Nurse Practitioner Relationship Specialty Start Date End Date Cony Perez MD PCP - General 06/29/15 12/17/21 Jodi Whelan MD [address] [place] [address] [address] [place] [address] PCP - General 12/18/21 documented as of this encounter
--- OUTSIDE RECORDS SUMMARY | 2024-06-15 21:53 | XMS_ITS | Encounter Summary ---
Author Organization [facility] Address [address] [place] [address] Care Team Providers Care Trimming Assembler Name Role Phone Jodi Whelan MD Primary Care Provide r Reason for Visit * Reason Comments Rash new stretch darrick wit h 2 blisters. rubbed together from being hot. they were itcy and now its spreading and i have 5 blisters now. rash on right inner thigh/groin Encounter Details Date Type Department Care Team (Late st Contact Info) Description 12/30/2021 12:56 EDT - 12/30/2021 13:47 EDT Emergency [facility] Emergency Department [address] [place], [place] [id number] Shubham Mascorro, PA-C [address] [place] [address] Plant dermatitis (Primary Dx) Discharge Disposition: Home or Self Care Social [...] on file documented as of this encounter Last Filed Vital Signs Vital Sign Reading [...] Body Mass Index 25.61 12/30/2021 1254 EDT documented in this encounter Discharge Instructions * Discharge Instructions* Shubham Mascorro PA-C - 12/30/2021 13:36 EDT You were seen in the emergency department with a rash on your thigh, this looks like poison racheal andyou are being treated with a topical corticosteroid, use twice a day as prescribed until gone. If this significantly worsens or does not respond to the topical medication you can call your primary care provider and you may benefit from oral steroids although this rash does not require that at this time. You are also being tested for herpes virus infection, you will be called with any positive result. * Attachments The following attachments cannot be sent through Care Everywhere. * Poison Racheal - [place] - and [place] (Guinean) documented in this encounter Medications at Time of Discharge Medication Sig Dispensed Refills Start Date End Date acetaminophen (TYLENOL) 500 mg tablet Take 500 mg by mouth every 6 hours as needed for Pain. buspirone HCl (BUSPIRONE ORAL) Take by mouth. ergocalciferol, vitamin D2, (VITAMIN D ORAL) Take by mouth. prazosin HCl (PRAZOSIN ORAL) Take by mouth daily. UNKNOWN TO PATIENT Some form of control triamcinolone (KENALOG) 0.1 % cream . 45 g 12/30/2021 01/13/2022 documented as of this encounter Ordered Prescriptions Prescription Sig Dispensed Refills Start Date End Da te triamcinolone (KENALOG) 0.1 % cream . 45 g 12/30/2021 01/13/2022 documented in this encounter Discharge Disposition Disposition Code Departure Means Destination Home or Self [facility] documented in this encounter ED Notes * Shubham Mascorro PA-C - 12/30/2021 2532 EDT Emergency Department Visit Assessment and ED Course 21-year-old female presents to the emergency department with a rash between her thighs. Looks like plant dermatitis, linear distribution with raised clear fluid-filled vesicles, it is also somewhat concerning for HSV and swab will be obtained but general appearance is more consistent with plant dermatitis and she does report a history of plant dermatitis, was by a river prior to onsetof symptoms. Will treat with topical triamcinolone, HSV swab obtained, See discharge instructions for patient education/return precautions. Final diagnoses: Plant dermatitis Disposition: Discharged Chief complaint: Rash on bilateral inner thighs HECTOR Gallegos is a 21-year-old female who presents to the emergency department with concern for a rash and blisters on the inner aspect of her bilateral thighs. She does report a history of poison racheal, states that she was walking to a river a few days ago before symptoms began, describes it as a burning and itching sensation. Reports feeling otherwise well, denies fevers or chills. History was provided by: Patient Patient's pertinent PMH, FH, SH were reviewed and edited as necessary. ROS A focused review of systems was performed. Pertinent positives and negatives as noted in HPI. Physical Exam BP 119/76 Pulse 101 Temp 36.8 ??C (98.2 ??F) (Temporal) Resp 18 Ht 157.5 cm (62) Wt 63.5kg (140 lb) SpO2 98% BMI 25.61 kg/m?? A medical screening exam was performed. Physical Exam Vitals and nursing note reviewed. Constitutional: General: She is not in acute distress. Appearance: She is well-developed and well-nourished. HENT: Nose: Nose normal. Mouth/Throat: Mouth: Mucous membranes are moist. Pharynx: Oropharynx is clear. Eyes: Conjunctiva/sclera: Conjunctivae normal. Cardiovascular: Rate and Rhythm: Normal rate. Pulmonary: Effort: Pulmonary effort is normal. No respiratory distress. Musculoskeletal: General: Normal range of motion. Cervical back: Normal range of motion and neck supple. Skin: General: Skin is warm and dry. Comments: Linear erythema posterior medial aspect proximal third of right thigh with clear fluid filled vesicles in a linear distribution, much more subtle rash with similar appearance left inner thigh and similar linear distribution. Neurological: Mental Status: She is alert and oriented to person, place, and time. Cranial Nerves: No cranial nerve deficit. Psychiatric: Mood and Affect: Mood and affect normal. Laboratory data was reviewed and independently interpreted. Procedures Procedures documented in this encounter Plan of Treatment Not on file documented as of this encounter Procedures Procedure Name Priority Date/Time Associated Diagnosis Comments HSV (HERPES SIMPLEX VIRUS) MOLECULAR DETECTION, PCR Routine 12/30/2021 13:35 EDT documented in this encounter Results * HERPES SIMPLEX VIRUS MOLECULAR DETECTION, PCR (12/30/2021 13:35 EDT) Herpes Simplex Virus Molecular Detection 1, PCR Negative Negative 12/31/2021 14:34 EDT [facility] Herpes Simplex Virus Molecular Detection 2, PCR Negative Negative 12/31/2021 14:34 EDT [facility] Swab SPECIMEN FROM LOWER LIMB / Unknown Swab / Unknown 12/30/2021 13:35 EDT 12/30/2021 13:36 EDT Shubham Mascorro PA-C MICROBIOLOGY - GENE RAL ORDERABLES [facility] [address] [place] [address] documented in this encounter Visit Diagnoses Diagnosis Plant dermatitis- Primary Contact dermatitis and other eczema due to plants (except food) documented in this encounter Care Teams Trimming Assembler Relationship Specialty Start Date End Date Jodi Whelan MD [address] [facility] [address] [place] [address] PCP - General 12/18/21 documented as of this encounter
--- OUTSIDE RECORDS SUMMARY | 2024-06-15 21:53 | XMS_ITS | Encounter Summary ---
Author Organization [facility] Address [address] [place] [address] Care Team Providers Care Intermodal Owner Operator Truck Driver Name Role Phone Cony Perez MD Primary Care Provider [phone] Jodi Whelan MD Primary Care Provide r Encounter Details Date Type Department Care Team (Late st Contact Info) Description 08/20/2019 Lab Requisition [facility] Pathology & Laboratory Medicine - [address] [address] Unknown, Provider, Social History Tobacco Use Types [...] Comments CHLAMYDIA/N. GONORRHOEAE AMPLIFIED NUCLEIC ACID Routine 08/19/2019 17:17 EST documented in this encounter Results * CHLAMYDIA/N. GONORRHOEAE AMPLIFIED RNA (08/19/2019 17:17 EST) Neisseria gonorrhoeae Result Negative Negative 08/24/2019 7:48 EST [facility] Chlamydia trachomatis Result Negative Negative 08/24/2019 7:48 EST [facility] RAE URINE / Unknown 08/19/2019 1 7:17 EST 08/20/2019 22:18 EST Provider Unknown MICROBIOLOGY - GENER AL ORDERABLES [facility] [address] [place] [address] documented in this encounter Visit Diagnoses Not on filedocumented in this encounter Care Teams Intermodal Owner Operator Truck Driver Relationship Specialty Start Date End Date Cony Perez MD PCP - General 06/29/15 12/17/21 Jodi Whelan MD [address] [place] [address] PCP - General 12/18/21 documented as of this encounter
--- OUTSIDE RECORDS SUMMARY | 2024-06-15 21:53 | XMS_ITS | Encounter Summary ---
Author Organization [facility] Address [address] [place] [address] Care Team Providers Care Senior Manager Mmcoe Name Role Phone Cony Perez MD Primary Care Provider [phone] Reason for Visit * Reason Onset Date Comments Eye Problem 11/26/2021 Encounter Details Date Type Department Care Team (Late st Contact Info) Description 11/26/2021 Telephone [facility] Ophthalmology - [address] [phone] Unknown, Doctor MD Eye Problem Social History Tobacco Use Types Packs/Day Years [...] on file documented as of this encounter Miscellaneous Notes * Telephone Encounter - Jenni Stark - 11/26/2021 1000 EDT Scheduled for 1:45 today * Telephone Encounter - JoseA Mcgregor RN - 11/26/[address] Rutherford can see today. Renee to call and schedule. Jose A Corado RN 11/26/2021 9:48 * Telephone Encounter - Jose A Mcgregor RN - 11/26/2021 0901 EDT Called and spoke to patient. She called [facility] on Sat and was told that she should call us. We were not open so she did not call. On 11/23/2021, she started to see a bringt light (like when you look at the sun then look away). Itgot worse as it went along. She cannot see half of SO face. It was black. Half brown of waves. Couldstill see color. As this went on she lost vision in left eye completely. It then decreased back to partial. This last 2.5 hours (total). Vision did return back to normal. She did close the left eye wh ile this was going on and vision was in right eye. After this, she felt hazy, like she drank a couple of beers. No numbness and not tingling. No double vision but she had been going cross eyes. She stated this has happened before in the same eye several months ago. She had migraine on left side. This lasted 2.5 hours. Has had HEWITT before but not history of migraines. She did have one about 2.5 weeks ago. [phone], okay to leave message. She could come today. Is 1.5 hours away. Jose A Corado RN 11/26/2021 9:05 * Telephone Encounter - Alvaro Neumanna - 11/26/2021 0837 EDT Which Eye? Left Nature of problem? Lost vision in it on Friday and it has happened before and pain, new floaters with migraines Onset and Duration? 11.23.2021 went on for about 3hrs with a really bad migraine and the pain was on the Right side Is this an injury or trauma? Are you having pain? Describe the type of pain you are having (sharp, dull, etc) Sharp If yes, please rate pain on scale 0-10? 7 Have you had any recent surgery? Do you have establish eye care? yes With who? My eye doctor in [place] Did you call them? Yes If yes, do you have appointment with them? 11.27.2021 Are the notes being faxed over? No its been over 2 years since she last saw them documented in this encounter Plan of Treatment Not on file documented as of this encounter Visit Diagnoses Not on filedocumented in this encounter Care Teams Senior Manager Mmcoe Relationship Specialty Start Date End Date Cony Perez MD PCP - General 06/29/15 12/17/21 documented as of this encounter
--- OUTSIDE RECORDS SUMMARY | 2024-06-15 21:53 | XMS_ITS | Referral Summary ---
Author Organization [facility] Address [address] [place] [address] Care Team Providers Care Hospice Plan Administrator Name Role Phone Jodi Whelan MD Primary [...] Active Active Problems No known active problems Social History Tobacco Use Types Packs/Day Years [...] 18:07 EDT Sexual Orientation Not on file Last Filed Vital Signs Vital Sign Reading [...] 25.61 12/30/2021 1254 EDT Plan of Treatment Not on file Care Teams Hospice Plan Administrator Relationship Specialty Start Date End Date Jodi Whelan MD [address] [place] [address] PCP - General 12/18/21
--- OUTSIDE RECORDS SUMMARY | 2024-06-15 21:54 | XMS_ITS ---
Author Organization Unknown Address [address] [place] [phone] Phone Care Team Providers Care Coding Machine Operator Name Role Phone ELAN SANDY Registered Nurse Unavailable ZI Ramos Attending Unavailable NICOLE Puente Primary Unavailable UNLISTED PROVIDER - REQUESTED Xhandoff Un available Results XR CHEST PORTABLE OR 1V - Co mpleted: 05/04/2022 03:15 LOINC: [facility] [place], [place] [address] PACS TRACK MACHINE OPERATOR REPAIRER REPORT Patient Name: JOANN STODDARD MRN: Sex: : Age: [id number] F [id number] Account: StayType: Accession: Admit: [id number] E/R [id number] 05/03/2022 Ordered: Order ID: Ordering Provider: [id number] TED PINON Completed: CompletedBy: Resulted: By: [id number] [facility] [id number] [facility] Study Description: XR CHEST PORTABLE OR 1V Study Reason: ChestPain TECHNIQUE: 2D digital imaging was performed. COMPARISON: 2008 chest x-ray FINDINGS: Single AP view Heart size is normal. The mediastinum is not widened. Lungs are clear. No infiltrates nor obvious pleural effusions. IMPRESSION: No acute pulmonary findings on this single AP portable view of the chest. Report Digitally Signed by Earle Snyder on 05/04/2022 12:37 PM EDT Social History Type Status Start Date End Date Code Code Syst em Smoking History Never smoker (Never Smoked) 549142153 SNOMED CT Sex Female Vital Signs Vital Sign Value Unit [place] Value [place] Unit Date/Time Recent/Initial? Code Code System Systolic Blood Pressure 110 mm[Hg] 05/03/2022 22:32 Initial 8480-6 LOINC Diastolic Blood Pressure 70 mm[Hg] 05/03/2022 22:32 Initial 8462-4 LOINC O2 Saturation 100 % 2021 22:32 Initial 79892- 5 LOINC Pulse 70.0 /min 05/03/2022 22:32 Initial 8867-4 LOINC Respiration 18 /min 05/03/20 22:32 Initial 9279-1 LOINC Temperature 36.0 Ila 96.8 F 05/03/20 22:32 Initial 8310-5 LOINC Medications Medication Start Date End Date Route Frequency Dose Code Code System Medication Instructions Home Meds Bactrim DS 800MG-160MG Oral Tablet 07/05/2023 10/16/2023 ORAL TWICE A DAY 1 TABLET 681087 RxNorm TAKE 1 TABLET ORAL TWICE A DAY diazePAM 2MG Oral Tablet 10/16/2023 Unknown ORAL EVERY 6 HOURS 1 TABLET 609323 RxNorm TAKE 1 TABLET ORAL EVERY 6 [...] Status Code Code System ANXIETY 01/20/2022 resolved 62319322 SNOMED-CT DEPRESSION 01/20/2022 resolved 59274119 SNOMED-C T Allergies and Adverse Reactions Allergy Substance Reaction Severity Start Date Concern Status Co de Code System No Known Allergies Moderate Active 006852132 SN OMED-CT Plan of Treatment Symptoms 05/17/2020 US ABDOMEN LIMITED 1 ORGAN 09/03/2023 EXPOSURE 08/08/2021 SYMPTOMS 06/15/2021 Encounters Encounter Diagnosis Start Date Code Code Sys tem Shortness of breath 05/03/2022 SNOMED-C T Personal Care Team Section Performer Name Performer Role Active Date Inactive Da te
--- OUTSIDE RECORDS SUMMARY | 2024-06-15 21:54 | XMS_ITS ---
Author Organization Unknown Address [address] [place] [phone] Phone Care Team Providers Care Booster Operator Name Role Phone ERIC JACK Attending Unavailable NICOLE Puente Primary Unavailable Social History Type Status Start Date End Date Code Code Syst em Smoking History Never smoker (Never Smoked) 451597488 SNOMED CT Sex Female Medications Medication Start Date End Date Route Frequency Dose Code Code System Medication Instructions Home Meds Bactrim DS 800MG-160MG Oral Tablet 07/05/2023 10/16/2023 ORAL TWICE A DAY 1 TABLET 702397 RxNorm TAKE 1 TABLET ORAL TWICE A DAY diazePAM 2MG Oral Tablet 10/16/2023 Unknown ORAL EVERY 6 HOURS 1 TABLET 319568 RxNorm TAKE 1 TABLET ORAL EVERY 6 [...] Status Code Code System ANXIETY 01/20/2022 resolved 09264296 SNOMED-CT DEPRESSION 01/20/2022 resolved 89878115 SNOMED-C T Allergies and Adverse Reactions Allergy Substance Reaction Severity Start Date Concern Status Co de Code System No Known Allergies Moderate Active 807119257 SN OMED-CT Plan of Treatment Symptoms 05/17/2020 US ABDOMEN LIMITED 1 ORGAN 09/03/2023 EXPOSURE 08/08/2021 SYMPTOMS 06/15/2021 Encounters Encounter Diagnosis Start Date Code Code Sys tem Pain in thoracic spine 04/10/2023 SNOME D-CT Personal Care Team Section Performer Name Performer Role Active Date Inactive Da te
--- OUTSIDE RECORDS SUMMARY | 2024-06-15 21:54 | XMS_ITS ---
Author Organization Unknown Address [address] [place] [phone] Phone Care Team Providers Care Yard General Car Supervisor Name Role Phone JONNA ACOSTA Registered Nurse Unavailable MAYUR Solis Attending Unavailable NICOLE Puente Primary Unavailable UNLISTED PROVIDER - REQUESTED Xhandoff Un available Results STREP GROUP A ANTIGEN ASSAY - Collect Date/Time: 01/20/2022 07:25 [facility] ID: [id number] [address] [place] [address], [address] LOINC: 27744-4 Test Value Unit Reference Range Code Code System Flag GRP A STREP ANTIGEN NOT DETECTED 6556-5 LOINC [facility] COVID RHEONIX* - Corin ect Date/Time: 01/20/2022 07:25 [facility] ID: [id number] [address] [place] [address], [id number] LOINC: 33151-8 Test Value Unit Reference Range Code Code System Flag Tier- SYMPTOMS 21422-1 LOINC SARS COV2 RNA: NEGATIVE REFERENCE RAN GE: NEGAT 67691-9 LOINC Social History Type Status Start Date End Date Code Code Syst em Smoking History Never smoker (Never Smoked) 575721328 SNOMED CT Sex Female Vital Signs Vital Sign Value Unit [place] Value [place] Unit Date/Time Recent/Initial? Code Code System Body Mass Index 25.61 kg/m2 01/20/2022 07:33 Initial 91586 -5 LOINC Systolic Blood Pressure 114 mm[Hg] 01/20/2022 07:33 Initial 8480- 6 LOINC Diastolic Blood Pressure 75 mm[Hg] 01/20/2022 07:33 Initial 8462- 4 LOINC Body Surface Area 1.67 m2 01/20/2022 07:33 Initial 3140- 1 LOINC Height 157.480 0 cm 62.00 in 01/20/2022 07:33 Initial 8302- 2 LOINC O2 Saturation 99 % 2021 07:33 Initial 12111 -5 LOINC Pulse 94.0 /min 01/20/2022 07:33 Initial 8867- 4 LOINC Respiration 17 /min 01/21/20 07:33 Initial 9279- 1 LOINC Temperature 36.8 Ila 98.2 F 01/21/20 07:33 Initial 8310- 5 LOINC Weight 63.50 kg 140.00 lbs 01/20/2022 07:33 Initial 26990 -7 LOINC Medications Medication Start Date End Date Route Frequency Dose Code Code System Medication Instructions Home Meds Bactrim DS 800MG-160MG Oral Tablet 07/05/2023 10/16/2023 ORAL TWICE A DAY 1 TABLET 776615 RxNorm TAKE 1 TABLET ORAL TWICE A DAY diazePAM 2MG Oral Tablet 10/16/2023 Unknown ORAL EVERY 6 HOURS 1 TABLET 021099 RxNorm TAKE 1 TABLET ORAL EVERY 6 [...] Status Code Code System ANXIETY 01/20/2022 resolved 87264033 SNOMED-CT DEPRESSION 01/20/2022 resolved 85418091 SNOMED-C T Allergies and Adverse Reactions Allergy Substance Reaction Severity Start Date Concern Status Co de Code System No Known Allergies Moderate Active 164880108 SN OMED-CT Plan of Treatment Symptoms 05/17/2020 US ABDOMEN LIMITED 1 ORGAN 09/03/2023 EXPOSURE 08/08/2021 SYMPTOMS 06/15/2021 Encounters Encounter Diagnosis Start Date Code Code Sys tem Acute pharyngitis, unspecified 01/20/2022 SNOMED-CT Personal Care Team Section Performer Name Performer Role Active Date Inactive Da mini
--- OUTSIDE RECORDS SUMMARY | 2024-06-15 21:55 | XMS_ITS ---
Author Organization Unknown Address [address] [place] [phone] Phone Care Team Providers Care Smog Technician Name Role Phone NICOLE Puente Attending Unavailable Results US ABD LIMITED ONE ORGAN - C ompleted: 09/03/2023 16:32 LOINC: RADIOLOGY [place], [place] [address] PACS PIER HAND REPORT Patient Name: JOANN STODDARD MRN: Sex: : Age: [id number] F 2000 22 Account: Accession: Admit: StayType: [id number] 09/03/2023 O/P Ordered: Order ID: Submitted: Ordering Provider: 09/03/2023 15:49 [id number] KT MIGUELINA RIVERA Completed: Technologist: Resulted: 09/03/2023 16:32 RXT 09/03/2023 17:00 Study Description: US ABD LIMITED ONE ORGAN Study Reason: RLQ PAIN COMPARISON: Pelvic ultrasound of the same day. FINDINGS: The appendix was not visualized. No ascites or drainable collection. IMPRESSION: Normal sonographic appearance of the right lower quadrant. Report Digitally Signed by Qian Andres on 09/03/2023 05:00 PM EST US PELVIC TRANSVAGINAL* - Co mpleted: 09/03/2023 16:32 LOINC: RADIOLOGY [place], [place] [address] PACS PIER HAND REPORT Patient Name: JOANN STODDARD MRN: Sex: : Age: [id number] F 2000 Account: Accession: Admit: StayType: [id number] 09/03/2023 O/P Ordered: Order ID: Submitted: Ordering Provider: 09/03/2023 15:49 [id number] MIGUELINA KIM Completed: Technologist: Resulted: 09/03/2023 16:32 RXT 09/03/2023 16:57 Study Description: US PELVIC TRANSVAGINAL* Study Reason: Right Lower Quad Pain TECNIQUE: Transabdominal and transvaginal exams performed. COMPARISON: Pelvic ultrasound 09 December 2013, abdomen ultrasound 23 July 2012 FINDINGS: UTERUS: Anteverted. 6.9 x 2.9 x 4.2 cm. Endometrium: 6mm Myometrium: Unremarkable. Cervix: Nabothian cyst. OVARIES: Right: Cyst or mass: None. Left: Cyst or mass: None. DOPPLER: Color: Symmetric and uniform flow to both ovaries. No hyperemia. CUL-DE-SAC: Free fluid: None. IMPRESSION: 1. Normal-appearing uterus with endometrial stripe within normal limits. 2. Unremarkable bilateral ovaries. Report Digitally Signed by Qian Andres on 09/03/2023 04:57 PM EST Social History Type Status Start Date End Date Code Code Syst em Smoking History Never smoker (Never Smoked) 028687310 SNOMED CT Sex Female Medications Medication Start Date End Date Route Frequency Dose Code Code System Medication Instructions Home Meds Bactrim DS 800MG-160MG Oral Tablet 07/05/2023 10/16/2023 ORAL TWICE A DAY 1 TABLET 942146 RxNorm TAKE 1 TABLET ORAL TWICE A DAY diazePAM 2MG Oral Tablet 10/16/2023 Unknown ORAL EVERY 6 HOURS 1 TABLET 486728 RxNorm TAKE 1 TABLET ORAL EVERY 6 [...] Status Code Code System ANXIETY 01/20/2022 resolved 92330343 SNOMED-CT DEPRESSION 01/20/2022 resolved 92145514 SNOMED-C T Allergies and Adverse Reactions Allergy Substance Reaction Severity Start Date Concern Status Co de Code System No Known Allergies Moderate Active 572542695 SN OMED-CT Plan of Treatment Symptoms 05/17/2020 US ABDOMEN LIMITED 1 ORGAN 09/03/2023 EXPOSURE 08/08/2021 SYMPTOMS 06/15/2021 Encounters Encounter Diagnosis Start Date Code Code Sys tem Right lower quadrant pain 09/03/2023 541330109 SN OMED-CT Personal Care Team Section Performer Name Performer Role Active Date Inactive Da te
--- OUTSIDE RECORDS SUMMARY | 2024-06-15 21:55 | XMS_ITS ---
Author Organization Unknown Address [address] [place] [phone] Phone Care Team Providers Care Pediatric Physical Therapist Name Role Phone CORNELIUSKALEN Ramiro COFFMAN Registered Nurse Unavailable MAYUR Solis Attending Unavailable NICOLE Puente Primary Unavailable UNLISTED PROVIDER - REQUESTED Xhandoff Un available Results CULT URINE CULTURE* - Ernesto ramirez Date/Time: 07/05/2023 22:55 [facility] ID: [id number] [address] [place] [address], [phone] LOINC: 630-4 Test Value Unit Reference Range Code Code System Flag COLLECTION MODE: CLEAN CATCH 80116-4 LOINC TEST QUAL (URINE) - Collect Date/Time: 07/05/2023 22:55 [facility] ID: [id number] [address] [place] [address], 5661 LOINC: 2106-3 Test Value Unit Reference Range Code Code System Flag TEST NEGATIVE 2106-3 LOINC URINALYSIS WITH REFLEX CULT IF POSITIVE* - Collect Date/Time: 07/05/2023 22:55 [facility] ID: [id number] [address] [place] [address], 5661 LOINC: 66749-8 Test Value Unit Reference Range Code Code System Flag COLLECTION MODE: CLEAN CATCH 83958-1 LOINC Color STRAW yellow 5778-6 LOINC Appearance CLEAR clear 5767-9 LOINC Glucose urine NEGATIVE negative mg/dl 54213-4 LOINC Bilirubin NEGATIVE negative 5770-3 LOINC Ketones NEGATIVE negative mg/dl 2514-8 LOINC Spec gravity <=1.005 1.003 - 1.030 5811-5 LOINC pH urine 7.0 5.0 - 7.0 2756-5 LOINC Protein NEGATIVE negative mg/dl 20829-1 LOINC Urobilinogen 0.2 <or= 1 EU/dl 78863-2 LOINC Nitrite. NEGATIVE negative 5802-4 LOINC Blood MODERATE negative 5794-3 LOINC A Leukocytes. SMALL negative A MICROSCOPIC INDICATED WBCs. 5-10 0-5 / hpf 35865-9 LOINC RBCs 5-10 0-5 / hpf 44509-0 LOINC Epith cells none 0-5 / hpf 40578-6 LOINC Crystals none none Bacteria minimal none Mucus present none 8247-9 LOINC Casts none none /lpf 18654-7 LOINC Other 62350-5 LOINC Social History Type Status Start Date End Date Code Code Syst em Smoking History Never smoker (Never Smoked) 168377187 SNOMED CT Sex Female Vital Signs Vital Sign Value Unit Bowman Value Bowman Unit Date/Time Recent/Initial? Code Code System Body Mass Index 24.69 kg/m2 07/05/2023 22:48 Initial 84582 -5 LOINC Systolic Blood Pressure 124 mm[Hg] 07/05/2023 23:15 Most Recent 8480- 6 LOINC Diastolic Blood Pressure 74 mm[Hg] 07/05/2023 23:15 Most Recent 8462- 4 LOINC Systolic Blood Pressure 130 mm[Hg] 07/05/2023 22:48 Initial 8480- 6 LOINC Diastolic Blood Pressure 89 mm[Hg] 07/05/2023 22:48 Initial 8462- 4 LOINC Body Surface Area 1.64 m2 07/05/2023 22:48 Initial 3140- 1 LOINC Height 157.480 0 cm 62.00 in 07/05/2023 22:48 Initial 8302- 2 LOINC O2 Saturation 99 % 2022 23:15 Most Recent 67255 -5 LOINC O2 Saturation 99 % 2022 22:48 Initial 93496 -5 LOINC Pulse 78.0 /min 07/05/2023 23:15 Most Recent 8867- 4 LOINC Pulse 90.0 /min 07/05/2023 22:48 Initial 8867- 4 LOINC Respiration 16 /min 07/05/20 23:15 Most Recent 9279- 1 LOINC Respiration 18 /min 07/05/20 22:48 Initial 9279- 1 LOINC Temperature 36.7 Ila 98.1 F 07/05/20 23:15 Most Recent 8310- 5 LOINC Temperature 36.3 Ila 97.3 F 07/05/20 22:48 Initial 8310- 5 LOINC Weight 61.23 kg 135.00 lbs 07/05/2023 22:48 Initial 50800 -7 LOINC Medications Medication Start Date End Date Route Frequency Dose Code Code System Medication Instructions Home Meds Bactrim DS 800MG-160MG Oral Tablet 07/05/2023 10/16/2023 ORAL TWICE A DAY 1 TABLET 573953 RxNorm TAKE 1 TABLET ORAL TWICE A DAY diazePAM 2MG Oral Tablet 10/16/2023 Unknown ORAL EVERY 6 HOURS 1 TABLET 850998 RxNorm TAKE 1 TABLET ORAL EVERY 6 [...] Status Code Code System ANXIETY 01/20/2022 resolved 30778959 SNOMED-CT DEPRESSION 01/20/2022 resolved 40279121 SNOMED-C T Allergies and Adverse Reactions Allergy Substance Reaction Severity Start Date Concern Status Co de Code System No Known Allergies Moderate Active 733718952 SN OMED-CT Plan of Treatment Symptoms 05/17/2020 US ABDOMEN LIMITED 1 ORGAN 09/03/2023 EXPOSURE 08/08/2021 SYMPTOMS 06/15/2021 Encounters Encounter Diagnosis Start Date Code Code Sys tem Cystitis, unspecified without hematuria 07/05/2023 SNOMED-CT Personal Care Team Section Performer Name Performer Role Active Date Inactive Da te
--- OUTSIDE RECORDS SUMMARY | 2024-06-15 21:55 | XMS_ITS ---
Author Organization Unknown Address [address] [place] [address] [phone] Phone Care Team Providers Care Orthodontist Name Role Phone PETER WELLS Registered Nurse Unavailable MAYUR Solis Attending Unavailable NICOLE Puente Primary Unavailable UNLISTED PROVIDER - REQUESTED Xhandoff Un available Results XR CHEST PORTABLE OR 1V - Co mpleted: 10/16/2023 09:17 LOINC: [facility] [place], [place] [address] PACS HRIS SPECIALIST REPORT Patient Name: JOANN STODDARD MRN: Sex: : Age: [id number] F 2000 22 Account: Accession: Admit: StayType: [id number] 10/16/2023 E/R Ordered: Order ID: Submitted: Ordering Provider: 10/16/2023 09:10 [id number] LIS TRENT Completed: Technologist: Resulted: 10/16/2023 09:17 RXK 10/16/2023 12:13 Study Description: XR CHEST PORTABLE OR 1V Study Reason: Chest Pain Technique: 2D digital imaging was performed of the chest. 1 images were obtained. Comparison: Comparison is made with prior examinations. FINDINGS: MEDIASTINUM: Normal. HEART: Normal. PULMONARY VASCULATURE: Normal. LUNGS: Clear. PLEURAL SPACE: No pleural effusion or pneumothorax. BONE:Within normal limits for the patient's age. OTHER FINDINGS:Normal. IMPRESSION: No acute pulmonary findings. Report Digitally Signed by Marquis Pisano on 10/16/2023 12:13 PM EST Social History Type Status Start Date End Date Code Code Syst em Smoking History Never smoker (Never Smoked) 039429408 SNOMED CT Sex Female Medications Medication Start Date End Date Route Frequency Dose Code Code System Medication Instructions Home Meds Bactrim DS 800MG-160MG Oral Tablet 07/05/2023 10/16/2023 ORAL TWICE A DAY 1 TABLET 206319 RxNorm TAKE 1 TABLET ORAL TWICE A DAY diazePAM 2MG Oral Tablet 10/16/2023 Unknown ORAL EVERY 6 HOURS 1 TABLET 068823 RxNorm TAKE 1 TABLET ORAL EVERY 6 [...] Status Code Code System ANXIETY 01/20/2022 resolved 46351064 SNOMED-CT DEPRESSION 01/20/2022 resolved 35162011 SNOMED-C T Allergies and Adverse Reactions Allergy Substance Reaction Severity Start Date Concern Status Co de Code System No Known Allergies Moderate Active 742532252 SN OMED-CT Plan of Treatment Symptoms 05/17/2020 US ABDOMEN LIMITED 1 ORGAN 09/03/2023 EXPOSURE 08/08/2021 SYMPTOMS 06/15/2021 Encounters Encounter Diagnosis Start Date Code 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
== END 2024-06-15 21:52 | disposition home or self-care (01) ==
LOC: NCHCN 21:51
PROVIDERS: PCP Family Medicine; Visit Provider Family Medicine
DX: R05.9 Cough, unspecified (principal)
CPT/HCPCS: 87637

== ENCOUNTER 2024-11-26 16:25 | Outpatient (REF) | payer BC, SELFPAY ==
[2024-11-26 21:28] LABS: Abs Immature Grans 0.03 10^3/uL (0.0-0.06); Absolute Basophil Count 0.08 10^3/uL (0.0-0.2); Absolute Eosinophil Count 0.13 10^3/uL (0.0-0.7); Absolute Lymphocyte Count 2.48 10^3/uL (1.2-3.4); Absolute Monocyte Count 0.47 10^3/uL (0.1-0.8); Absolute Neutrophil Count 4.01 10^3/uL (1.2-6.7); Basophils % 1.1 %; Eosinophils % 1.8 %; HCT 41.6 % (36.0-46.0); HGB 14.7 g/dL (11.2-15.7); Immature Grans % 0.4 %; Lymphocytes % 34.4 %; MCH 30.8 pg (27.0-33.0); MCHC 35.3 % (32.0-36.0); MCV 87 fL (80-95); MPV 12.8 fL (8.0-11.0); Monocytes % 6.5 %; Neutrophils % 55.8 %; Platelet Count 271 10^3/uL (130-400); RBC 4.77 10^6/uL (3.93-5.22); RDW 11.9 % (11.7-14.6); RDW-SD 38.4 fL
[2024-11-26 21:49] LABS: ALT 95 U/L (14-59); AST 40 U/L (15-37); Albumin 4.4 g/dL (3.4-5.0); Alkaline Phosphatase 85 U/L (46-116); Anion Gap 6.1 mmol/L (3-11); BUN 7 mg/dL (7-18); Bilirubin, Total 0.4 mg/dL (0.2-1.0); CO2 28.9 mmol/L (21.0-32.0); CREATININE 0.7 mg/dL (0.55-1.02); Chloride 105 mmol/L (98-107); Estimated GFR 122.25 (mL/min/1.73m2); Glucose 92 mg/dL (74-106); Lipase 40 U/L (<78); Sodium 140 mmol/L (136-145); TSH (W/Ref FT4) 1.28 uIU/mL (0.36-3.74); Total Protein 7.1 g/dL (6.4-8.2)
[2024-11-29 11:39] LABS: IgA 127 mg/dL (85-499); Interpretation (See Note); Tissue Transglutaminase IgA <4.0 CU (<20.0)
== END 2024-11-26 16:26 | disposition home or self-care (01) ==
LOC: NCHCN 16:25
PROVIDERS: PCP Family Medicine; Visit Provider Family Medicine
DX: R10.13 Epigastric pain (principal); K59.00 Constipation, unspecified
CPT/HCPCS: 80053; 82784; 83516; 83690; 84443; 85025

== ENCOUNTER 2024-12-31 19:23 | Outpatient (REF) | payer BC, SELFPAY ==
--- NOTE | 2024-12-31 16:03 | PAPFT_PTH ---
PATIENT: Rosy Spencer LOC: [facility] U#:[id number] AGE/SX: 24/F ROOM: RE12/31/[address]: Buzz Whelan : 2000 BED: DIS: 12/31/2024 SPEC #: [id number] RECD: 01/03/25 13:03 STATUS: SHANICE REDaniel #: [id number] XIOMARA: 12/31/24 16:[address]: Buzz Whelan DEPT: [facility] Cytology RECD BY: Chiquita Eubanks Tissues: 1 - CX/ENDOCX FOR PAP SMEARS Procedures: PAP THIN PREP/[facility] Screening Comments: [id number] (CHLAMYDIA/GC)
[2025-01-04 12:12] LABS: Chlamydia Result Negative (Negative); GC Result Negative (Negative)
== END 2024-12-31 19:24 | disposition home or self-care (01) ==
LOC: NCHCN 19:23
PROVIDERS: PCP Family Medicine; Visit Provider Family Medicine
DX: Z12.4 Encounter for screening for malignant neoplasm of cervix (principal); Z11.3 Encounter for screening for infections with a predominantly sexual mode of transmission
CPT/HCPCS: 87491; 87591; 88142